=== PATIENT | male | born 1990 | race African-American/Black ===

== ENCOUNTER 2024-07-19 15:36 | Emergency (ER) | payer SELFPAY ==
[~2024-07-19] VITALS: Ht 193 cm; Wt 150.0 kg
[2024-07-19 15:45] VITALS: BP 159/92; TEMP 37.3; O2SAT 98
[2024-07-19 15:47] VITALS: PULSE 85; RESP 20; O2SAT 98
[2024-07-19] MEDS ORDERED: AMOX-494 MT (18:24)
[2024-07-19] MEDS: KETOROLAC 30MG/ML VIAL IM STA (18:53)
[2024-07-19] MEDS: PREDNISONE 20MG TABLET PO ONE (18:54)
== END 2024-07-19 19:00 | disposition home or self-care (01) ==
LOC: ER 15:36
DX: J02.9 Acute pharyngitis, unspecified (principal); F12.10 Cannabis abuse, uncomplicated
CPT/HCPCS: 99283; 96372; J1885; J7512